=== PATIENT | male | born 1970 | race Caucasian/White ===

== ENCOUNTER 2017-06-23 11:55 | Inpatient (IN) | payer OTHER ==
[~2017-06-23] VITALS: Ht 170.2 cm; Wt 88.1 kg
[2017-06-23 12:55] VITALS: BP 160/95; PULSE 75; RESP 16; TEMP 98.4; O2SAT 99
[2017-06-23] MEDS ORDERED: LEXA5TAB PO (13:02)
[2017-06-23 14:05] LABS: AUTOMATED NEUTROPHIL # 11.5 TH/MM3 (1.8-7.7); BASOPHIL % 0.2 % (0.0-2.0); EOSINOPHIL # 0.1 TH/MM3 (0-0.4); EOSINOPHIL % 0.6 % (0.0-4.0); HEMATOCRIT 47.2 % (39.0-51.0); LYMPH % 12.2 % (9.0-44.0); LYMPHOCYTE # 1.7 TH/MM3 (1.0-4.8); MEAN CORPUSCULAR HEMOGLOBIN 30.6 PG (27.0-34.0); MEAN PLATELET VOLUME 7.7 FL (7.0-11.0); MONOCYTE # 0.9 TH/MM3 (0-0.9); PLATELET COUNT 199 TH/MM3 (150-450); RED BLOOD COUNT 5.24 MIL/MM3 (4.50-5.90); RED CELL DISTRIBUTION WIDTH 13.2 % (11.6-17.2); WHITE BLOOD COUNT 14.2 TH/MM3 (4.0-11.0)
--- NOTE | 2017-06-23 14:26 | PD ---
HPI Chief Complaint: Psychiatric Symptoms Time Seen by Provider: 13:02 Travel History International Travel<30 days: No Contact w/Intl Traveler<30days: No Traveled to known affect area: No History of Present Illness HPI 47-year-old male that presents to the ED for evaluation of Joel act. Patient was Maldonado acted secondary to apparently making suicidal statements after apparently finding out that his is sleeping him. Per patient he does not know what to do. He feels helpless. He does have a history of depression. She denies being Maldonado acted in the past. Per patient he has a history of tension headaches and depression and takes medications for them. He denies any actual plan but he does state feeling hopeless. Denies any urinary or bowel movement issues. No chest pain or shortness of breath. No other medical issues. Symptoms appear to be worse since yesterday secondary to the finding out that his is leaving him. He has an allergy to iodine. No other medical issues. No drugs or alcohol. PFSH Past Medical History Depression: Yes Headaches: Yes Medical other: Yes (CHRONIC BACK PAIN, NASAL POLYPS) Tetanus Vaccination: Unknown Influenza Vaccination: No Past Surgical History Surgical History: No Previous Surgery Social History Alcohol Use: Yes (ONE GLASS OF WINE DAILY) Tobacco Use: No Substance Use: No Allergies-Medications (Allergen,Severity, Reaction): Coded Allergies: iodine (Verified Allergy, Severe, UNKNOWN, 06/23/17) Reported Meds & Prescriptions Reported Meds & Active Scripts Active Reported Lexapro (Escitalopram Oxalate) 5 Mg Tab 5 Mg PO DAILY Review of Systems Except as stated in HPI: all other systems reviewed are Neg Physical Exam Narrative GENERAL: SKIN: Warm and dry. HEAD: Atraumatic. Normocephalic. EYES: Pupils equal and round. No scleral icterus. No injection or drainage. ENT: No nasal bleeding or discharge. Mucous membranes pink and moist. Tongue is midline. No uvula radiation. NECK: Trachea midline. No JVD. CARDIOVASCULAR: Regular rate and rhythm. No murmurs, S3, S4. RESPIRATORY: No accessory muscle use. Clear to auscultation. Breath sounds equal bilaterally. GASTROINTESTINAL: Abdomen soft, non-tender, nondistended. Hepatic and splenic margins not palpable. MUSCULOSKELETAL: Extremities without clubbing, cyanosis, or edema. No obvious deformities. Full range of motion of the upper and lower extremities bilaterally. 2+ pulses bilaterally. NEUROLOGICAL: Awake and alert. No obvious cranial nerve deficits. Motor grossly within normal limits. Five out of 5 muscle strength in the arms and legs. Normal speech. PSYCHIATRIC: Appropriate mood and affect; insight and judgment normal. Data Data Last Documented VS Vital Signs Date Time Temp Pulse Resp B/P (MAP) Pulse Ox O2 Delivery O2 Flow Rate FiO2 06/23/17 12:55 98.4 75 16 160/95 (116) 99 Orders Orders Complete Blood Count With Diff (06/23/17 12:44) Comprehensive Metabolic Panel (06/23/17 12:44) Thyroid Stimulating Hormone (06/23/17 12:44) Psych Screen (06/23/17 12:44) Drug Screen, Random Urine (06/23/17 12:44) Alcohol (Ethanol) (06/23/17 12:44) Salicylates (Aspirin) (06/23/17 12:44) Tylenol (Acetaminophen) (06/23/17 12:44) Labs Laboratory Tests Test 06/23/17 13:20 06/23/17 13:22 White Blood Count 14.2 TH/MM3 Red Blood Count 5.24 MIL/MM3 Hemoglobin 16.0 GM/DL Hematocrit 47.2 % Mean Corpuscular Volume 90.0 FL Mean Corpuscular Hemoglobin 30.6 PG Mean Corpuscular Hemoglobin Concent 34.0 % Red Cell Distribution Width 13.2 % Platelet Count 199 TH/MM3 Mean Platelet Volume 7.7 FL Neutrophils (%) (Auto) 81.0 % Lymphocytes (%) (Auto) 12.2 % Monocytes (%) (Auto) 6.0 % Eosinophils (%) (Auto) 0.6 % Basophils (%) (Auto) 0.2 % Neutrophils # (Auto) 11.5 TH/MM3 Lymphocytes # (Auto) 1.7 TH/MM3 Monocytes # (Auto) 0.9 TH/MM3 Eosinophils # (Auto) 0.1 TH/MM3 Basophils # (Auto) 0.0 TH/MM3 CBC Comment DIFF FINAL Differential Comment MDM Medical Decision Making Medical Screen Exam Complete: Yes Emergency Medical Condition: Yes Medical Record Reviewed: Yes Interpretation(s) CBC Diagram 06/23/17 13:22 Differential Diagnosis Depression versus suicidal ideation versus anxiety versus adjustment disorder versus mood disorder versus bipolar disorder versus schizophrenia versus paranoid disorder versus psychosis versus substance abuse versus alcohol abuse versus alcohol induced psychosis versus homicidality addition versus cutting versus personality disorder Narrative Course 47-year-old male that presents to the ED for evaluation of Maldonado act. Patient was properly examined and was found to have signs and symptoms consistent appears to be psychiatric. No significant medical distress. Labs were drawn. Patient will be medically clear. Okay to be seen by psych. Mental health screening was discussed with the patient. Diagnosis Primary Impression: Depression Qualified Codes: F33.1 - Major depressive disorder, recurrent, moderate Harjit Ivy Jun 23, 2017 14:26
[2017-06-23 14:29] LABS: ALBUMIN 4.4 GM/DL (3.4-5.0); BICARBONATE 25.6 MEQ/L (21.0-32.0); BLOOD UREA NITROGEN 8 MG/DL (7-18); CALCIUM 9.2 MG/DL (8.5-10.1); CHLORIDE 106 MEQ/L (98-107); GLOMERULAR FILTRATION RATE 80 ML/MIN (>89); GLUCOSE,RANDOM 95 MG/DL (74-106); SODIUM (NA) 139 MEQ/L (136-145)
[2017-06-23 14:30] LABS: ALT (GPT) 55 U/L (12-78)
[2017-06-23 14:40] LABS: ALKALINE PHOSPHATASE 65 U/L (45-117); AST (GOT) 25 U/L (15-37); TOTAL BILIRUBIN ADULT 0.7 MG/DL (0.2-1.0); TOTAL PROTEIN 8.2 GM/DL (6.4-8.2)
[2017-06-23 14:45] LABS: ACETAMINOPHEN LESS THAN 2.0 MCG/ML (10.0-30.0)
[2017-06-23 16:25] VITALS: BP 160/91; PULSE 86; RESP 18; O2SAT 98
[2017-06-23 19:12] VITALS: BP 149/78; PULSE 78; RESP 18; O2SAT 98
[2017-06-24 01:05] VITALS: BP 170/95; PULSE 93; RESP 17; TEMP 97.9; O2SAT 99
[2017-06-24 06:21] VITALS: BP 152/81; PULSE 67; RESP 18; TEMP 97.8; O2SAT 96
[2017-06-24] MEDS ORDERED: MAGNESIUM HYDROXIDE SUSP 30 ML CUP PO PRN (10:30)
[2017-06-24] MEDS ORDERED: ALUMINUM/MAGNESIUM/SIMETH 30 ML CUP PO PRN (10:30)
[2017-06-24] MEDS: ESCITALOPRAM OXALATE 10 MG TAB PO SCH (10:30)
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
[2017-06-24 18:30] VITALS: BP 132/84; PULSE 118; RESP 18; O2SAT 98
[2017-06-25] MEDS: ESCITALOPRAM OXALATE 10 MG TAB PO SCH (09:00)
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
--- NOTE | 2017-06-25 14:43 | HHI.PYPN ---
Subjective Chief Complaint: depression with suicidal statements Remarks Patient seen in his room with counselor, chart review, patient refusing medications, patient refusing to sign for medications, patient discussed with nurse. I shared with patient the conversationally had with his yesterday. She is adamant about the marriage ending. She verified his meanness to her and to his children come increasingly aggressive with this. She also stated the plans of his parents to fly here from [facility] to help with the treatment discharge plans and follow-up. Perhaps with patient returning to her son his parents. Is saying this patient became more and more labile tearful moaning and shaking his head. Also deflecting any responsibility to his stating she is responsible for much of this is her fault, she should be here not me. He is refusing medication. Initially appears to be refusing the offer of his family to return to [facility] with them. I subsequently talked again with patient' s . Patient's family flying in tomorrow. We will meet with patient's family and life Friday morning at about 9 AM to discuss further treatment. With patient's reluctance to sign for medication is continued suicidal ideation and statements. Plus the fact that found his suicidal letter that he wrote before he went up to [place] that she calls his "manifesto" I question his capacity to make appropriate decisions. Thus I'll observe for another 24 hours or so that I may ask for healthcare surrogate and guardian advocate Review of Systems Except as stated in HPI: all other systems reviewed are Neg Mental Status Examination Appearance: Appropriate Consciousness: Alert Orientation: x4 Motor Activity: Normal gait Speech: Pressured, Rapid, Other (very strong a English accent) Language: Adequate Fund of Knowledge: Adequate Attention and Concentration: Adequate Memory: Unremarkable Mood: Sad, Anxious, Irritable, Other (labile) Affect: Other (increased range and intensity, somewhat histrionic) Thought Process & Associations: Intact, Disorganized (somewhat) Thought Content: Appropriate, Preoccupations Hallucination Type: None Delusion Type: None Suicidal Ideation: Yes (somewhat vague today) Suicidal Plan: No (denies at this time) Suicidal Intention: No (Nuys at this time) Homicidal Ideation: No Homicidal Plan: No Homicidal Intention: No Insight: Fair Judgment: Impulsive Results Vitals/IOs Vital Signs Date Time Temp Pulse Resp B/P (MAP) Pulse Ox O2 Delivery O2 Flow Rate FiO2 4/10/18 18:16 06/24/17 06:21 97.8 67 18 96 Room Air Assessment & Plan Problem List: (1) Adjustment disorder with mixed disturbance of emotions and conduct in remission ICD Codes: F43.25 - Adjustment disorder with mixed disturbance of emotions and conduct Assessment & Plan Estimated LOS: days patient becoming more distraught tearful and depressed. Now refusing medication. Patient's parents are flying in from [place]. We'll meet with them along with patient's 9 AM Friday morning 06/27 there is a possibility this patient may not have capacity when considering his behavior Justification for Cont. Inpt. This time patient would decompensate of placed a lower level of care Discharge Planning To be determined Request HC Surrog/Guard Advoc?: No Michael Pepper MD Jun 25, 2017 14:43
[2017-06-25 17:13] VITALS: BP 119/68; PULSE 66; RESP 18; TEMP 98.5; O2SAT 100
[2017-06-26] MEDS: hydrOXYzine HCL 50 MG TAB PO PRN
[2017-06-26 00:02] VITALS: BP 141/92; PULSE 91; RESP 18; O2SAT 98
[2017-06-26 05:42] VITALS: BP 111/66; PULSE 74; RESP 18; TEMP 98; O2SAT 98
[2017-06-26] MEDS: ESCITALOPRAM OXALATE 10 MG TAB PO SCH (09:25)
--- NOTE | 2017-06-26 11:15 | HHI.PYPN ---
Subjective Chief Complaint: depression with suicidal statements Remarks He should seen in his room with nurse a shunt. Chart review, patient compliant medications, patient discussed with nurse. She continues quite labile tearful depressed now saying he was stay ambiguous though I have reinforced the fact that his is stated to me that the marriage is over. We are awaiting patient's parents to arrive here from [facility]. They're attentive appointment set for tomorrow morning with patient's parents and his . For now continue treatment today patient somewhat vague about suicidality Review of Systems Except as stated in HPI: all other systems reviewed are Neg Mental Status Examination Appearance: Appropriate Consciousness: Alert Orientation: x4 Motor Activity: Normal gait Speech: Pressured, Rapid, Other (very strong a Occitan accent) Language: Adequate Fund of Knowledge: Adequate Attention and Concentration: Adequate Memory: Unremarkable Mood: Sad, Anxious, Irritable, Other (labile) Affect: Other (increased range and intensity, somewhat histrionic) Thought Process & Associations: Intact, Disorganized (somewhat) Thought Content: Appropriate, Preoccupations Hallucination Type: None Delusion Type: None Suicidal Ideation: Yes (somewhat vague today) Suicidal Plan: No (denies at this time) Suicidal Intention: No (Nuys at this time) Homicidal Ideation: No Homicidal Plan: No Homicidal Intention: No Insight: Fair Judgment: Impulsive Results Vitals/IOs Vital Signs Date Time Temp Pulse Resp B/P (MAP) Pulse Ox O2 Delivery O2 Flow Rate FiO2 06/26/17 05:42 98.0 74 18 111/66 (81) 98 06/24/17 06:21 Room Air Assessment & Plan Problem List: (1) Adjustment disorder with mixed disturbance of emotions and conduct in remission ICD Codes: F43.25 - Adjustment disorder with mixed disturbance of emotions and conduct Assessment & Plan Estimated LOS: days patient continues depressed hysterically somewhat histrionic and confused though today he is compliant with medication Justification for Cont. Inpt. At this time patient decompensated placed in a lower level of care Discharge Planning Will meet tomorrow with patient's parents in their right here from [facility] and patient's . The does not want to be involved with patient in any way at this time Request HC Surrog/Guard Advoc?: No Michael Pepper MD Jun 26, 2017 11:15
[2017-06-26 17:25] VITALS: BP 143/86; PULSE 96; RESP 18; TEMP 98.4; O2SAT 96
[2017-06-26] MEDS: ACETAMINOPHEN 325 MG TAB PO PRN ×2 (17:25)
[2017-06-26] MEDS: diphenhydrAMINE HCL 50 MG CAP PO PRN ×2 (23:38)
[2017-06-27 05:45] VITALS: BP 122/71; PULSE 59; RESP 16; TEMP 97.8; O2SAT 97
[2017-06-27] MEDS: ESCITALOPRAM OXALATE 10 MG TAB PO SCH ×2 (09:17→09:19)
--- NOTE | 2017-06-27 13:58 | HHI.PYPN ---
Subjective Chief Complaint: depression with suicidal statements Remarks Met with patient's the patient's mother and father will just flown in from [place]. 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 It was agreed by parents that and they recommend that patient return to [facility] with them. That he needs a period of time to care for himself. With his family to assist him. Perhaps getting counseling in [place] also. They agreed that having contact with him having contact with his at this time was not a good idea. After this we met with patient patient's mother and father and counselor Annalee. With patient interpreting. He showed some increased insight he was calm more focused and cooperative. He agreed with him relocating to [facility] with his parents for an open ended. Of time, he is getting some counseling over there, and continuing his medication. He also somewhat to slightly acknowledge mood lability and asked for medication to help calm him. I feel the most appropriate mood stabilizer in the long run for this man would be lithium. We will start him on lithium 150 mg p.o. twice daily for 3 days check a blood level and readjust. Patient also agreed to having his parents go to his home and to pickle maker his close and get what art supplies that he could for him to take back to [facility]. Patient willing to allow his daughters to set the parameters for any communication with him. We will meet again on Friday 06/30 to finalize if possible the plans and timing for them to return to [facility] Review of Systems Except as stated in HPI: all other systems reviewed are Neg Mental Status Examination Appearance: Appropriate Consciousness: Alert Orientation: x4 Motor Activity: Normal gait Speech: Pressured (Decreased), Rapid (Slower), Other (very strong a Kyrgyz accent) Language: Adequate Fund of Knowledge: Adequate Attention and Concentration: Adequate Memory: Unremarkable Mood: Sad, Anxious (Less anxious), Irritable (Less irritable) Affect: Other (Somewhat calmer though still tearful) Thought Process & Associations: Intact, Disorganized (Improved) Thought Content: Appropriate, Preoccupations Hallucination Type: None Delusion Type: None Suicidal Ideation: Yes (Denies at this time) Suicidal Plan: No (denies at this time) Suicidal Intention: No (Nuys at this time) Homicidal Ideation: No Homicidal Plan: No Homicidal Intention: No Insight: Fair Judgment: Impulsive Results Vitals/IOs Vital Signs Date Time Temp Pulse Resp B/P (MAP) Pulse Ox O2 Delivery O2 Flow Rate FiO2 06/27/17 05:45 97.8 59 16 122/71 (88) 97 06/24/17 06:21 Room Air Assessment & Plan Problem List: (1) Adjustment disorder with mixed disturbance of emotions and conduct in remission ICD Codes: F43.25 - Adjustment disorder with mixed disturbance of emotions and conduct (2) Mood disorder ICD Codes: F39 - Unspecified mood [affective] disorder Assessment & Plan Estimated LOS: days meeting with patient's parents, and the patient went well without tentative plans for parents to get patient's clothing and some of his art supplies with possible discharge to his parents to return with them to [facility] next week. Patient also requested something to help with his mood will start him on lithium 150 mg twice daily check a blood level in 3 days after discussing this with patient's family after the patient may be suffering more from a mood disorder than an adjustment disorder Justification for Cont. Inpt. At this time patient would decompensate a place to a lower level of care Discharge Planning See above Request HC Surrog/Guard Advoc?: No Michael Pepper MD Jun 27, 2017 13:58
[2017-06-27] MEDS: LITHIUM CARBONATE 300 MG TAB PO SCH ×2 (15:36→21:05)
[2017-06-27 17:27] VITALS: BP 166/83; PULSE 84; RESP 17; TEMP 98.7; O2SAT 98
[2017-06-27] MEDS: hydrOXYzine HCL 50 MG TAB PO PRN (18:44)
[2017-06-27 21:00] VITALS: BP 139/92; PULSE 84; RESP 18; TEMP 97.7; O2SAT 97
[2017-06-28 05:38] VITALS: BP 130/77; PULSE 66; RESP 16; TEMP 97.8; O2SAT 97
[2017-06-28] MEDS: LITHIUM CARBONATE 300 MG TAB PO SCH ×2 (08:18→20:15)
[2017-06-28] MEDS: ESCITALOPRAM OXALATE 10 MG TAB PO SCH (08:18)
--- NOTE | 2017-06-28 12:05 | HHI.PYPN ---
Subjective Chief Complaint: depression with suicidal statements Remarks Patient was seen and case discussed with nursing. Patient says he is having a bad day. He feels a burning in his chest that he describes as depression and anxiety for the past 2 days. Patient says he was suicidal before admission trying to starve himself and dehydrated himself to for 3 days. Patient says those feelings are gone. He still feels hopeless and unsure for the future. Tolerating his medications well. Behaving well on the unit Mental Status Examination Appearance: Appropriate Consciousness: Alert Orientation: x4 Motor Activity: Normal gait Speech: Pressured (Decreased), Rapid (Slower), Other (very strong a Amharic accent) Language: Adequate Fund of Knowledge: Adequate Attention and Concentration: Adequate Memory: Unremarkable Mood: Sad, Anxious (Less anxious), Irritable (Less irritable) Affect: Other (Somewhat calmer though still tearful) Thought Process & Associations: Intact, Disorganized (Improved) Thought Content: Appropriate, Preoccupations Hallucination Type: None Delusion Type: None Suicidal Ideation: Yes (Fleeting) Suicidal Plan: No (denies at this time) Suicidal Intention: No (Nuys at this time) Homicidal Ideation: No Homicidal Plan: No Homicidal Intention: No Insight: Fair Judgment: Impulsive Results Vitals/IOs Vital Signs Date Time Temp Pulse Resp B/P (MAP) Pulse Ox O2 Delivery O2 Flow Rate FiO2 06/28/17 05:38 97.8 66 16 130/77 (94) 97 Assessment & Plan Problem List: (1) Adjustment disorder with mixed disturbance of emotions and conduct in remission ICD Codes: F43.25 - Adjustment disorder with mixed disturbance of emotions and conduct (2) Mood disorder ICD Codes: F39 - Unspecified mood [affective] disorder Assessment & Plan Continue current treatment plan Justification for Cont. Inpt. Patient would decompensate in a less restrictive setting Request HC Surrog/Guard Advoc?: No Yo Mueller DO Jun 28, 2017 12:05
[2017-06-28 19:03] VITALS: BP 133/76; PULSE 77; RESP 19; TEMP 98.8; O2SAT 99
[2017-06-28] MEDS: hydrOXYzine HCL 50 MG TAB PO PRN (20:19)
[2017-06-29 05:14] VITALS: BP 129/75; PULSE 57; RESP 16; TEMP 97.7; O2SAT 98
[2017-06-29] MEDS: LITHIUM CARBONATE 300 MG TAB PO SCH ×2 (08:38→20:09)
[2017-06-29] MEDS: ESCITALOPRAM OXALATE 10 MG TAB PO SCH (08:39)
--- NOTE | 2017-06-29 12:31 | HHI.PYPN ---
Subjective Chief Complaint: depression with suicidal statements Remarks Patient was seen and case discussed with nursing. Patient says he is having "good day." Main stressor continues to be his relationship with his . He says they are not on talking terms and he is asking me how he could find out if she filed a divorce. Per nursing, he was tearful last night. Stressors include having to go to [place] in a child remaining in the [place]. He does deny suicidal or homicidal ideation intent or plan Mental Status Examination Appearance: Appropriate Consciousness: Alert Orientation: x4 Motor Activity: Normal gait Speech: Pressured (Decreased), Rapid (Slower), Other (very strong a Kyrgyz accent) Language: Adequate Fund of Knowledge: Adequate Attention and Concentration: Adequate Memory: Unremarkable Mood: Sad, Anxious (Less anxious), Irritable (Less irritable) Affect: Other (Tearful) Thought Process & Associations: Intact, Disorganized (Improved) Thought Content: Appropriate, Preoccupations Hallucination Type: None Delusion Type: None Suicidal Ideation: No Suicidal Plan: No (denies at this time) Suicidal Intention: No (Nuys at this time) Homicidal Ideation: No Homicidal Plan: No Homicidal Intention: No Insight: Fair Judgment: Impulsive Results Vitals/IOs Vital Signs Date Time Temp Pulse Resp B/P (MAP) Pulse Ox O2 Delivery O2 Flow Rate FiO2 06/29/17 05:14 97.7 57 16 129/75 (93) 98 Intake and Output 06/29/17 06/29/17 06/30/17 08:00 16:00 00:00 Intake Total 240 ml Balance 240 ml Assessment & Plan Problem List: (1) Adjustment disorder with mixed disturbance of emotions and conduct in remission ICD Codes: F43.25 - Adjustment disorder with mixed disturbance of emotions and conduct (2) Mood disorder ICD Codes: F39 - Unspecified mood [affective] disorder Assessment & Plan Continue current treatment plan Justification for Cont. Inpt. Patient would decompensate in a less restrictive setting Request HC Surrog/Guard Advoc?: No Yo Mueller DO Jun 29, 2017 12:31
[2017-06-29 17:39] VITALS: BP 132/76; PULSE 58; RESP 16; TEMP 97.7; O2SAT 97
[2017-06-30 05:57] VITALS: BP 134/62; PULSE 71; RESP 18; TEMP 97.5; O2SAT 98
[2017-06-30] MEDS: ESCITALOPRAM OXALATE 10 MG TAB PO SCH (09:00)
[2017-06-30] MEDS: LITHIUM CARBONATE 300 MG TAB PO SCH ×2 (09:02→20:28)
--- NOTE | 2017-06-30 16:33 | HHI.PYPN ---
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 It appears parents are making plans. Hopefully to get theater tickets changed to a flight this Friday. Patient continues to be willing to go to [place]. The plan will be to continue patient here until Friday then he will the parents pick him up with transportation to [place] to fly to [facility]. We will attempt to have patient's children visited with him though his daughters 13 and I will allow that. Patient seen later in the day he is pleasant calm much more appropriate for his emotional lability has softened his affect range and intensity are not within normal limits. He denies suicidality or homicidality voices or visions. He continues to be quite excited now about returning to [facility]. For now continue treatment lithium level drawn this morning is 0.2 on 150 twice daily we will increase to 300 twice daily check level in 3 days Review of Systems Except as stated in HPI: all other systems reviewed are Neg Mental Status Examination Appearance: Appropriate Consciousness: Alert Orientation: x4 Motor Activity: Normal gait Speech: Pressured (Decreased), Rapid (Slower), Other (very strong a Djiboutian accent) Language: Adequate Fund of Knowledge: Adequate Attention and Concentration: Adequate Memory: Unremarkable Mood: Sad, Irritable (Markedly improved) Affect: Other (Tearful) Thought Process & Associations: Intact Thought Content: Appropriate Hallucination Type: None Delusion Type: None Suicidal Ideation: No Suicidal Plan: No (denies at this time) Suicidal Intention: No (Nuys at this time) Homicidal Ideation: No Homicidal Plan: No Homicidal Intention: No Insight: Fair Judgment: Impulsive Results Labs Test 06/30/17 05:29 [place] Level 0.2 MEQ/L Vitals/IOs Vital Signs Date Time Temp Pulse Resp B/P (MAP) Pulse Ox O2 Delivery O2 Flow Rate FiO2 06/30/17 05:57 97.5 71 18 134/62 (86) 98 Assessment & Plan Problem List: (1) Adjustment disorder with mixed disturbance of emotions and conduct in remission ICD Codes: F43.25 - Adjustment disorder with mixed disturbance of emotions and conduct (2) Mood disorder ICD Codes: F39 - Unspecified mood [affective] disorder Assessment & Plan Estimated LOS: days patient's mood is improving, and lithium level of 0.2 we will adjust lithium accordingly. He now denies suicidality or homicidality. Plans are starting to become finalized for his parents to return to [facility] with him this coming Friday Justification for Cont. Inpt. At this time patient would decompensate a place to the lower level of care Discharge Planning Probable discharge Friday to parents to go directly to airport and return to [facility] Request HC Surrog/Guard Advoc?: No Michael Pepper MD Jun 30, 2017 16:33
[2017-06-30] MEDS ORDERED: LITHIUM CARBONATE 300 MG TAB PO ONE (16:45)
[2017-06-30] MEDS ORDERED: PILL SPLITTER OTHER PRN (17:00)
[2017-06-30 18:00] VITALS: BP 149/79; PULSE 73; RESP 16; TEMP 97.8; O2SAT 98
[2017-07-01] MEDS: ACETAMINOPHEN 325 MG TAB PO PRN (05:41)
[2017-07-01 05:46] VITALS: BP 107/53; PULSE 62; RESP 16; TEMP 98.2; O2SAT 96
[2017-07-01] MEDS: LITHIUM CARBONATE 300 MG TAB PO SCH ×2 (08:04→20:52)
[2017-07-01] MEDS: ESCITALOPRAM OXALATE 10 MG TAB PO SCH (08:04)
--- NOTE | 2017-07-01 12:18 | HHI.PYPN ---
Subjective Chief Complaint: depression with suicidal statements Remarks Patient seen in his room with russel Damon. Chart reviewed. Patient complaint medications. Discussed patient with nurse. Patient's mood continues to improve , it is very mildly labile. He had appears to be more and more committed to returning to [facility] with his parents on the Wednesday 07/05 patient did have visits with both of his daughters last night that went well. Patient having no problems with the increased dose of lithium. For now continue treatment upon review of patient's behaviors and history of refill this may be best described as a bipolar disorder most recent episode depression Review of Systems Except as stated in HPI: all other systems reviewed are Neg Mental Status Examination Appearance: Appropriate Consciousness: Alert Orientation: x4 Motor Activity: Normal gait Speech: Pressured (Decreased), Rapid (Slower), Other (very strong a [place] Citizen accent) Language: Adequate Fund of Knowledge: Adequate Attention and Concentration: Adequate Memory: Unremarkable Mood: Sad, Irritable (Markedly improved) Affect: Other (Tearful) Thought Process & Associations: Intact Thought Content: Appropriate Hallucination Type: None Delusion Type: None Suicidal Ideation: No Suicidal Plan: No (denies at this time) Suicidal Intention: No (Nuys at this time) Homicidal Ideation: No Homicidal Plan: No Homicidal Intention: No Insight: Fair Judgment: Impulsive Results Vitals/IOs Vital Signs Date Time Temp Pulse Resp B/P (MAP) Pulse Ox O2 Delivery O2 Flow Rate FiO2 07/01/17 05:46 98.2 62 16 107/53 (71) 96 Intake and Output 07/01/17 07/01/17 07/02/17 08:00 16:00 00:00 Intake Total 360 ml Balance 360 ml Assessment & Plan Problem List: (1) Adjustment disorder with mixed disturbance of emotions and conduct in remission ICD Codes: F43.25 - Adjustment disorder with mixed disturbance of emotions and conduct (2) Bipolar disorder, most recent episode depressed ICD Codes: F31.30 - Bipolar disorder, current episode depressed, mild or moderate severity, unspecified Assessment & Plan Estimated LOS: days patient's mood continues to improve this some increased range and intensity of his affect. There were no signs of psychosis noted by me. Patient compliant with medication Justification for Cont. Inpt. At this time patient would decompensate a place a lower level of care, also lithium level to be drawn 07/03 Discharge Planning Discharge on Wednesday 07/05 to his parents patient to return to [facility] with his parents will be given 1 month supply of medication follow-up mental health medication management and counseling in [place] Request HC Surrog/Guard Advoc?: No Michael Pepper MD Jul 01, 2017 12:18
[2017-07-01 17:52] VITALS: BP 163/79; PULSE 80; RESP 17; TEMP 98.2; O2SAT 98
[2017-07-02 05:35] VITALS: BP 125/74; PULSE 62; RESP 16; TEMP 98.3; O2SAT 97
[2017-07-02] MEDS: ESCITALOPRAM OXALATE 10 MG TAB PO SCH (08:24)
[2017-07-02] MEDS: LITHIUM CARBONATE 300 MG TAB PO SCH ×2 (08:24→20:59)
--- NOTE | 2017-07-02 11:59 | HHI.PYPN ---
Subjective Chief Complaint: depression with suicidal statements Remarks Patient is seen in day room with forcep, chart reviewed, patient complaint medications, patient discussed with nurse. Patient continues to stabilize with his mood he continues excited about and anticipating discharge on Wednesday 07/05 to return to [facility] with his parents. He denies suicidality or homicidality voices or visions. At this time patient no longer meets Maldonado criteria, who will lift Maldonado act allow patient to sign voluntary. With anticipation of discharge on 07/05. Will supply him with a 1 month supply of medications follow- up with mental health services in [facility] Review of Systems Except as stated in HPI: all other systems reviewed are Neg Mental Status Examination Appearance: Appropriate Consciousness: Alert Orientation: x4 Motor Activity: Normal gait Speech: Pressured (Decreased), Rapid (Slower), Other (very strong a Luxembourger accent) Language: Adequate Fund of Knowledge: Adequate Attention and Concentration: Adequate Memory: Unremarkable Mood: Sad, Irritable (Markedly improved) Affect: Other (Tearful) Thought Process & Associations: Intact Thought Content: Appropriate Hallucination Type: None Delusion Type: None Suicidal Ideation: No Suicidal Plan: No (denies at this time) Suicidal Intention: No (Nuys at this time) Homicidal Ideation: No Homicidal Plan: No Homicidal Intention: No Insight: Fair Judgment: Impulsive Results Vitals/IOs Vital Signs Date Time Temp Pulse Resp B/P (MAP) Pulse Ox O2 Delivery O2 Flow Rate FiO2 07/02/17 05:35 98.3 62 16 125/74 (91) 97 Intake and Output 07/02/17 07/02/17 07/03/17 08:00 16:00 00:00 Intake Total 240 ml Balance 240 ml Assessment & Plan Problem List: (1) Adjustment disorder with mixed disturbance of emotions and conduct in remission ICD Codes: F43.25 - Adjustment disorder with mixed disturbance of emotions and conduct (2) Bipolar disorder, most recent episode depressed ICD Codes: F31.30 - Bipolar disorder, current episode depressed, mild or moderate severity, unspecified Assessment & Plan Estimated LOS: days patient continues to improve he is calm and cooperative at this time denying suicidality or homicidality voice or visions. Patient scheduled for Maldonado court tomorrow, will lift Maldonado act low patient signed voluntary consider discharge on 07/05 Justification for Cont. Inpt. At this time patient would decompensate if not placed in appropriate level of care. That includes patient discharge on 07/05 to fly with family on that date to [facility], further care to be given at that locale Discharge Planning See above Request HC Surrog/Guard Advoc?: No Michael Pepper MD Jul 02, 2017 11:59
[2017-07-03 05:25] VITALS: BP 134/71; PULSE 62; RESP 16; TEMP 97.9; O2SAT 98
[2017-07-03] MEDS: ESCITALOPRAM OXALATE 10 MG TAB PO SCH (08:41)
[2017-07-03] MEDS: LITHIUM CARBONATE 300 MG TAB PO SCH ×2 (08:42→20:55)
[2017-07-03] MEDS ORDERED: ESCI10TA PO (09:29)
[2017-07-03] MEDS ORDERED: LITH300T3 PO (09:29)
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
[2017-07-03 17:58] VITALS: BP 133/80; PULSE 61; RESP 17; TEMP 98.2; O2SAT 99
[2017-07-04 05:45] VITALS: BP 119/63; PULSE 61; RESP 16; TEMP 98.1; O2SAT 98
[2017-07-04] MEDS: ESCITALOPRAM OXALATE 10 MG TAB PO SCH (10:27)
[2017-07-04] MEDS: LITHIUM CARBONATE 300 MG TAB PO SCH ×2 (10:27→22:03)
--- NOTE | 2017-07-04 12:27 | HHI.PYPN ---
Subjective Chief Complaint: depression with suicidal statements Remarks Reviewed electronic medical record and discussed with staff. Nurse reports that patient has had no issues with behaviors. Patient is awake, alert and oriented 4 upon examination. Follow-up occurred in the bains. Patient speech is clear, logical, and organized. I am unable to elicit any delusional material. He does not show any signs of being internally stimulated. He denies being suicidal, homicidal, or experiencing auditory or visual hallucinations. Patient is to be discharged tomorrow and he reports that he is ready for discharge. Mental Status Examination Appearance: Appropriate Consciousness: Alert Orientation: x4 Motor Activity: Normal gait Speech: Pressured (Decreased), Rapid (Slower), Other (very strong a Faroese accent) Language: Adequate Fund of Knowledge: Adequate Attention and Concentration: Adequate Memory: Unremarkable Mood: Sad, Irritable (Markedly improved) Affect: Other (Tearful) Thought Process & Associations: Intact Thought Content: Appropriate Hallucination Type: None Delusion Type: None Suicidal Ideation: No Suicidal Plan: No (denies at this time) Suicidal Intention: No (Nuys at this time) Homicidal Ideation: No Homicidal Plan: No Homicidal Intention: No Insight: Fair Judgment: Impulsive Results Vitals/IOs Vital Signs Date Time Temp Pulse Resp B/P (MAP) Pulse Ox O2 Delivery O2 Flow Rate FiO2 07/04/17 05:45 98.1 61 16 119/63 (81) 98 Assessment & Plan Problem List: (1) Adjustment disorder with mixed disturbance of emotions and conduct in remission ICD Codes: F43.25 - Adjustment disorder with mixed disturbance of emotions and conduct (2) Bipolar disorder, most recent episode depressed ICD Codes: F31.30 - Bipolar disorder, current episode depressed, mild or moderate severity, unspecified Assessment & Plan Estimated LOS: Patient to be discharged tomorrow. Days Justification for Cont. Inpt. Patient will be discharged tomorrow. Discharge plan in place. Request HC Surrog/Guard Advoc?: Nely Salgado Jul 04, 2017 12:27
[2017-07-04] MEDS ORDERED: LITH300T3 PO (13:16)
[2017-07-04] MEDS ORDERED: ESCI10TA PO (13:16)
[2017-07-04 17:57] VITALS: BP 147/81; PULSE 61; RESP 16; TEMP 98.4; O2SAT 97
[2017-07-05 06:01] VITALS: BP 118/67; PULSE 68; RESP 16; TEMP 97.9; O2SAT 98
[2017-07-05] MEDS: LITHIUM CARBONATE 300 MG TAB PO SCH (08:45)
[2017-07-05] MEDS: ESCITALOPRAM OXALATE 10 MG TAB PO SCH (08:45)
== END 2017-07-05 13:40 | disposition home or self-care (01) | DRG 885 ==
LOC: NEPJ 11:55 → NEDA 06-24 10:37 → H260 06-24 18:07
PROVIDERS: ADMIT Psychiatry & Neurology Psychiatry; ATTEND Psychiatry & Neurology Psychiatry
DX: F31.31 Bipolar disorder, current episode depressed, mild (principal); R45.851 Suicidal ideations; Z81.8 Family history of other mental and behavioral disorders; Z91.041 Radiographic dye allergy status; F43.25 Adjustment disorder with mixed disturbance of emotions and conduct
CPT/HCPCS: 80053; 80178; 80307; 84443; 85025; 99285; Q0163